=== PATIENT | male | born 1950 | race Caucasian/White ===

== ENCOUNTER 2018-05-20 13:01 | Emergency (ER) | payer MEDICARE, BC | END 2018-05-20 13:10 | disposition left against medical advice (07) | LOC: ERS 13:01 | DX: Z53.21 Procedure and treatment not carried out due to patient leaving prior to being seen by health care provider (principal) ==

== ENCOUNTER 2018-06-13 07:45 | Outpatient (CLI) | payer MEDICARE, BC ==
--- NOTE | 2018-06-13 09:55 | MRI ---
MR abdomen with and without IV contrast INDICATION: History of right lateral abdominal wall pain 2-3 months after lifting a heavy object TECHNIQUE: Multiplanar, multisequence MR images were obtained of the abdomen with and without IV cont rast. Contrast: 20 cc MultiHance. COMPARISON: CT of the abdomen and pelvis dated August 24, 2012. FINDINGS: Liver: Normal signal intensity without focal hepatic lesion. Gallbladder: Normal. Pancreas: Normal. Adrenal glands: Normal. Kidneys: There are bilateral renal cysts. The largest within the left kidney measures 4.1 cm involvin g the inferior pole left kidney. The largest within the right kidney is T1 hyperintense and without enhancement consistent with a proteinaceous cyst. This lesion measures 2 cm in size. No hydronephrosi s is demonstrated. Spleen: Normal. The spleen measures 10.7 cm. There is a small splenule seen along its posterior borde r. Lymphadenopathy or free fluid: None Vasculature: Appropriate flow voids are demonstrated. Bowel: Visualized bowel appears within normal limits. Osseous structures: No signal abnormality evident. IMPRESSION: 1. No MR explanation for the patient's abdominal pain. 2. Bilateral renal cysts.
[2018-06-13] MEDS ORDERED: Gadobenate Dimeglumine 529 MG/1 ML (20ML VIAL) ONE (11:07)
== END 2018-06-13 07:46 | disposition home or self-care (01) ==
LOC: MRI 07:45
PROVIDERS: ATTEND Family Medicine
DX: R10.9 Unspecified abdominal pain (principal); N28.1 Cyst of kidney, acquired
CPT/HCPCS: 74183; 82565

== ENCOUNTER 2019-06-29 13:02 | Observation (INO) | payer MEDICARE, BC ==
[2019-06-29] MEDS ORDERED: diphenhydrAMINE 25 MG CAP ONE (14:07)
[2019-06-29] MEDS ORDERED: methylPREDNISolone Sod Succ/PF 125 MG/2 ML VIAL ONE (14:07)
[2019-06-29] MEDS ORDERED: Lorazepam 1 MG TAB PO PRN (14:55)
[2019-06-29] MEDS ORDERED: hydrALAZINE 20 MG/ML VIAL SLOW IVP PRN (15:24)
[2019-06-29] MEDS ORDERED: Acetaminophen 325 MG TAB PO PRN (15:27)
[2019-06-29] MEDS ORDERED: Ondansetron PF 4 MG/2 ML Vial IVP PRN (15:27)
[2019-06-29] MEDS ORDERED: Calcium Carbonate 500 MG ChewTAB PO PRN (15:27)
[2019-06-29] MEDS ORDERED: Ondansetron ODT 4 MG TAB PO PRN (15:27)
[2019-06-29] MEDS ORDERED: Senokot S 8.6-50 MG TAB PO PRN (15:27)
--- NOTE | 2019-06-29 15:49 | HP ---
PRIMARY CARE PHYSICIAN: Tulio Burch MD CHIEF COMPLAINT: Stroke-like symptoms. HISTORY OF PRESENT ILLNESS: The patient is a 69-year-old male with hypertension and hyperlipidemia, presented to the emergency room at [facility] with above complaints. The patient's spouse is currently admitted at this facility. The patient was driving back home this morning when he had above symptoms. He had sudden onset of left-sided facial droop along with perioral numbness. When he reached home per his daughter's instruction, who is an RN, the patient called 911. The patient denied any double vision, blurring of vision, weakness, numbness of any of his extremities. No palpitations, chest pain, nausea, vomiting, syncope reported. He also noticed some swelling of left side of the lips without any tongue swelling. No wheezing or skin rash reported. In the emergency room, his initial vital signs showed temperature of 99.1 with respirations of 14, pulse rate of 69 with blood pressure of 158/75 with O2 saturation 100% on room air. He received aspirin along with IV fluids in the emergency room and was transferred to this facility. His CT scan of the brain was negative for acute CVA. His CT angiogram of the head and neck was negative for hemodynamically significant stenosis. PAST MEDICAL HISTORY: 1. Hypertension. 2. Hyperlipidemia. 3. Benign prostatic hypertrophy. 4. GERD. 5. CKD. PAST SURGICAL HISTORY: 1. Right leg surgery. 2. Surgery for diverticulitis, details unavailable. ALLERGIES: NO KNOWN DRUG ALLERGIES. CURRENT HOME MEDICATIONS: The patient is on lisinopril, Statins and Nexium per the patient's report. He is unable to recall the dosages. SOCIAL HISTORY: The patient smokes 4 to 5 cigars on a daily basis for last 30 years. He denies any alcohol or drug use. He makes his own decision with the help of his family. He is full code. FAMILY HISTORY: Negative for heart disease or CVA. REVIEW OF SYSTEMS: All other review of systems reviewed and were found negative. PHYSICAL EXAMINATION: VITAL SIGNS: As discussed above. GENERAL: This is a 69-year-old male, in no apparent distress. The patient's numbness is improving. HEENT: Head, atraumatic and normocephalic. Sclerae anicteric. Moist mucous membranes. No oral lesion. NECK: Supple. No JVD appreciated. No carotid bruit. LUNGS: Clear to auscultation bilaterally. No wheezing, rales or rhonchi. HEART: S1 and S2 present. Regular rate and rhythm. No rubs or gallops. ABDOMEN: Soft and nontender. Bowel sounds present. No rebound or guarding. EXTREMITIES: No edema or calf tenderness. NEUROLOGIC: Grossly nonfocal, moves all 4 extremities. Power was 5/5 in all extremities. Sensation to touch was normal bilaterally. There is minimal left-sided facial droop along with perioral numbness. No other focal neurologic finding. All other cranial nerves were in normal range. SKIN: Warm and dry. LYMPH NODES: No palpable lymph nodes in the neck. PSYCHIATRY: The patient is alert, awake, and oriented x3. LABORATORY FINDINGS: CBC showed WBC of 8.4 with hemoglobin of 13.5, hematocrit of 41.1, and platelet of 137. PT/INR in normal range. Chemistry showed sodium of 141, potassium of 4, chloride of 108, bicarb of 21, BUN of 26, creatinine of 1.69. Troponins were negative. LFTs in normal range. CT scan of the brain by my review as discussed above. CT angiogram of the head and neck as discussed above. IMPRESSION: 1. Suspected cerebrovascular accident. 2. Questionable angioedema due to STACY inhibitor. 3. Hypertension. 4. Dyslipidemia. 5. Benign prostatic hypertrophy. 6. Lumbar degenerative joint disease. 7. Chronic kidney disease, stage 3. 8. Chronic anemia, suspected due to nutritional deficiency. 9. Gastroesophageal reflux disease. PLAN: The patient will be monitored in the stroke unit. He is not on any antiplatelet agent. He will be started on aspirin. He received 324 mg aspirin in the emergency room. Fasting lipid profile will be obtained. He also received IV steroids and Benadryl in the emergency room for possible angioedema, which will be continued. IV steroids will be changed to prednisone. We will check echocardiogram. Neurology consultation. We will discontinue STACY inhibitor for now. The patient understands the above plan of care. Job ID: [id number] [facility]
[2019-06-29 16:58] VITALS: BMI 25.8
[2019-06-29] MEDS: Loratadine 10 MG TAB PO SCH (20:11)
[2019-06-29] MEDS ORDERED: Atorvastatin Calcium 40 MG TAB PO SCH (21:00)
[2019-06-30 05:13] LABS: Cardiac Risk 3.3 (Less than 4.5)
[2019-06-30] MEDS ORDERED: predniSONE 20 MG TAB PO SCH (08:00)
[2019-06-30] MEDS: Famotidine 20 MG TAB PO SCH (08:42)
--- NOTE | 2019-06-30 08:43 | PDOC.HOSPP ---
- Subjective Encounter Date: 06/30/19 Encounter Time: 07:30 Subjective: Patient seen and examined for TIA. Left facial swelling/numbness resolved. No new focal deficits. No new complaints. No overnight events - Objective Vital Signs & Weight: Vital Signs (12 hours) Temp Pulse Resp BP BP Pulse Ox 06/30/19 07:16 97.8 F 61 12 105/55 L 96 06/30/19 04:00 98.1 F 56 L 18 102/53 L 97 06/30/19 00:43 96 06/29/19 23:54 98.5 F 62 16 129/66 96 Weight Weight 180 lb I&O: 06/29/19 06/30/19 07/01/19 06:59 06:59 06:59 Intake Total 930 Balance 930 Additional Labs: Laboratory Tests 06/30/19 04:35 Triglycerides 43 Cholesterol 119 LDL Cholesterol, Calc 74 HDL Cholesterol 36 EKG Reviewed by me: Yes (Tele SB) Hospitalist ROS - Review of Systems Respiratory: denies: cough, dry, shortness of breath, hemoptysis, SOB with excertion, pleuritic pain, sputum, wheezing, other Cardiovascular: denies: chest pain, palpitations, orthopnea, paroxysmal noc. dyspnea, edema, light headedness, other Gastrointestinal: denies: nausea, vomiting, abdominal pain, diarrhea, constipation, melena, hematochezia, other - Medication Medications: Active Medications Generic Name Dose Route Start Last Admin Trade Name Freq PRN Reason Stop Dose Admin Loratadine 10 mg 06/29/19 21:00 06/29/19 20:11 Claritin PO 10 mg [facility] Administration - Exam General Appearance: NAD Neck: supple, no JVD Heart: RRR, no gallops, no rubs, normal peripheral pulses Respiratory: no wheezes, no rales, no ronchi, normal chest expansion Gastrointestinal: soft, non-tender, non-distended, normal bowel sounds Extremities: no cyanosis, no clubbing, no edema Neurological: cranial nerve grossly intact, normal sensation to touch, no weakness, no new deficit Psychiatric: normal affect, A&O x 3 Hosp A/P - Plan DVT proph w/SCDs 1. TIA r/o CVA 2. ?angioedema due to STACY inhibitor. 3. Hypertension. 4. Dyslipidemia. 5. Benign prostatic hypertrophy. 6. Lumbar degenerative joint disease. 7. Chronic kidney disease, stage 3. 8. Chronic anemia, suspected due to nutritional deficiency. 9. Gastroesophageal reflux disease. PLAN: Cont ASA Cont Statins Await MRI brain/Echo/Neuro input DC Lovenox - Pt ambulating Walking program Lisinopril dced due to ?Angioedema Cont other meds as above
[2019-06-30] MEDS ORDERED: Aspirin 325 mg Enteric Coated Tablet PO SCH (09:00)
[2019-06-30] MEDS ORDERED: Enoxaparin Sodium 40 MG/0.4 ML SYRINGE SC SCH (09:00)
--- NOTE | 2019-06-30 10:06 | MRI ---
Exam: Brain MRI without contrast HISTORY: Left facial numbness yesterday. Symptoms have subsequently subsided. Evaluate for CVA COMPARISON: None FINDINGS: Calvarial marrow signal intensity: Appropriate T1 signal Gradient echo sequence: No hemorrhage Brain parenchyma: No mass, mass effect or midline shift. Brain volume, age-appropriate. Cortical cobos-white matter differentiation: Preserved Restricted diffusion: Central arterial flow voids are maintained. Absent restricted diffusion White matter signal intensities:Minimal T2 and FLAIR white matter hyperintensities. Sinuses: Minimal opacification of the paranasal sinuses. Adequate mastoid air cell aeration IMPRESSION: 1. Absent restricted diffusion. No acute infarct. 2. Age-appropriate brain volume. Cortical cobos-white white matter differentiation is preserved.
--- NOTE | 2019-06-30 15:35 | CON ---
DATE OF CONSULTATION: 06/30/2019 NEUROLOGY CONSULTATION REASON FOR CONSULTATION: Stroke-like symptoms. HISTORY OF PRESENT ILLNESS: Mr. Dimas is a 69-year-old male with history significant for diabetes, hypertension, presented to the emergency room with stroke-like symptoms. Per the patient, he had sudden onset of left facial droop with perioral numbness as he was driving home. Per , his is admitted to this facility. He was extremely worried and admits that he did not sleep for 24 hours prior to this episode. He also felt weak on the left side with slurred speech. The patient called his daughter who is an RN, who asked him to call 911. In the emergency room, a head CT was done which was negative for acute intracranial pathology. Head CTA was also negative for hemodynamically significant stenosis. He denies any nausea, vomiting, headache, chest pain, loss of vision or loss of consciousness associated with this episode. PAST MEDICAL HISTORY: Hypertension, hyperlipidemia, benign prostatic hypertrophy, GERD, chronic renal disease. PAST SURGICAL HISTORY: Right leg surgery, status post diverticulitis surgery. ALLERGIES: NO KNOWN DRUG ALLERGIES. HOME MEDICATIONS: 1. Lisinopril. 2. Statin. 3. Nexium. SOCIAL HISTORY: The patient lives with his . Smokes 4 to 5 cigars for the last 30 years. Denies alcohol or illegal drug use. FAMILY HISTORY: Negative for heart disease or stroke. - Objective Vital Signs & Weight: Vital Signs (12 hours) Temp Pulse Resp BP BP Pulse Ox 06/30/19 07:16 97.8 F 61 12 105/55 L 96 06/30/19 04:00 98.1 F 56 L 18 102/53 L 97 06/30/19 00:43 96 06/29/19 23:54 98.5 F 62 16 129/66 96 Weight Weight 180 lb I&O: 06/29/19 06/30/19 07/01/19 06:59 06:59 06:59 Intake Total 930 Balance 930 Additional Labs: Laboratory Tests 06/30/19 04:35 Triglycerides 43 Cholesterol 119 LDL Cholesterol, Calc 74 HDL Cholesterol 36 EKG Reviewed by me: Yes (Tele SB) - Review of Systems Respiratory: denies: cough, dry, shortness of breath, hemoptysis, SOB with excertion, pleuritic pain, sputum, wheezing, other Cardiovascular: denies: chest pain, palpitations, orthopnea, paroxysmal noc. dyspnea, edema, light headedness, other Gastrointestinal: denies: nausea, vomiting, abdominal pain, diarrhea, constipation, melena, hematochezia, other - Medication Medications: Active Medications Generic Name Dose Route Start Last Admin Trade Name Malachi PRN Reason Stop Dose Admin Loratadine 10 mg 06/29/19 21:00 06/29/19 20:11 Claritin PO 10 mg HS THEO Administration - Exam General Appearance: NAD Neck: supple, no JVD Heart: RRR, no gallops, no rubs, normal peripheral pulses Respiratory: no wheezes, no rales, no ronchi, normal chest expansion Gastrointestinal: soft, non-tender, non-distended, normal bowel sounds Extremities: no cyanosis, no clubbing, no edema NEUROLOGICAL: Mental status: The patient is alert and oriented to person, place, and time. Cranial nerves 2 through 12 intact. Motor: Muscle tone and bulk are normal. Strength 5/5 bilaterally. Sensory: Intact reflexes 2+ bilaterally. Cerebellar : [id number] testing intact. Gait not tested due to patient's safety reason. IMAGING: I reviewed the MRI of the brain which was unremarkable. ASSESSMENT AND PLAN: Mr. Dimas is consulted for an episode of slurred speech and perioral numbness associated with some left-sided weakness which resolved on its own more. The patient does have risk factors for stroke, so most likely a TIA. MRI of the brain reviewed which was negative for acute intracranial pathology. Recommend an echocardiogram and carotid Dopplers. Startaspirin for secondary stroke prevention. Continue high dose statin for secondary stroke prevention. Permissive control of the blood pressure at this time. Neuro checks every 4 hours. Continue home medications. PT/OT/speech. Continue medical management per primary team. We will continue to follow. Thank you for the consult. Job ID: [id number] [facility]
[2019-06-30] MEDS ORDERED: Atorvastatin Calcium 10 MG TAB PO SCH (21:00)
[2019-06-30] MEDS: Loratadine 10 MG TAB PO SCH (21:11)
[2019-07-01 05:01] VITALS: BP 107/64; TEMP 98.5
[2019-07-01] MEDS ORDERED: Aspirin 81 mg Enteric Coated Tablet PO SCH (09:00)
[2019-07-01] MEDS: Famotidine 20 MG TAB PO SCH (09:06)
--- NOTE | 2019-07-01 11:39 | PDOC.HOSPP ---
- Subjective Encounter Date: 07/01/19 Subjective: NEUROLOGY PROGRESS NOTE No acute events overnight. Neurological symptoms completely resolved. - Objective Vital Signs & Weight: Vital Signs (12 hours) Temp Pulse Resp BP BP Pulse Ox 07/01/19 04:57 98.5 F 64 15 107/64 107/64 97 07/01/19 01:16 98.2 F 68 18 112/56 L 96 07/01/19 00:32 94 L Weight Weight 181 lb I&O: 06/30/19 07/01/19 07/02/19 06:59 06:59 06:59 Intake Total 930 1000 Balance 930 1000 Radiology Reviewed by me: Yes EKG Reviewed by me: Yes Hospitalist ROS - Review of Systems Constitutional: denies: fever, chills, sweats, weakness, malaise, other Eyes: denies: pain, vision change, conjunctivae inflammation, eyelid inflammation, redness, other ENT: denies: ear pain, ear discharge, nose pain, nose discharge, nose congestion , mouth pain, mouth swelling, throat pain, throat swelling, other Respiratory: denies: cough, dry, shortness of breath, hemoptysis, SOB with excertion, pleuritic pain, sputum, wheezing, other Cardiovascular: denies: chest pain, palpitations, orthopnea, paroxysmal noc. dyspnea, edema, light headedness, other Gastrointestinal: denies: nausea, vomiting, abdominal pain, diarrhea, constipation, melena, hematochezia, other Genitourinary: denies: dysuria, frequency, incontinence, hematuria, retention, other Musculoskeletal: denies: neck pain, shoulder pain, arm pain, back pain, hand pain, leg pain, foot pain, other Skin: denies: rash, lesions, zhou, bruising, other - Medication Medications: Active Medications Generic Name Dose Route Start Last Admin Trade Name Freq PRN Reason Stop Dose Admin Aspirin 81 mg 07/01/19 09:00 07/01/19 09:06 Ecotrin PO 81 mg DAILY THEO Administration Atorvastatin Calcium 10 mg 06/30/19 21:00 06/30/19 21:11 Lipitor PO 10 mg HS THEO Administration Calcium Carbonate 1,000 mg 06/29/19 15:27 07/01/19 00:26 Tums PO 1,000 mg Q4H PRN Administration Heartburn or Indigestion Famotidine 20 mg 06/30/19 09:00 07/01/19 09:06 Pepcid PO 20 mg DAILY THEO Administration Loratadine 10 mg 06/29/19 21:00 06/30/19 21:11 Claritin PO 10 mg HS THEO Administration Sodium Chloride 10 ml 06/29/19 15:24 06/30/19 21:17 Flush - Normal Saline IVF 10 ml PRN PRN Administration Saline Flush - Exam General Appearance: awake alert Eye: PERRL, anicteric sclera ENT: normocephalic atraumatic, no oropharyngeal lesions, moist mucosa Neck: supple, symmetric, no JVD Heart: RRR, no murmur, no gallops, no rubs, normal peripheral pulses Respiratory: CTAB, no wheezes, no rales Gastrointestinal: soft Extremities: no cyanosis, no clubbing, no edema Skin: normal turgor, no lesions, no rashes Neurological: cranial nerve grossly intact, normal sensation to touch, no weakness, no focal deficits, no new deficit Musculoskeletal: normal tone, normal strength, no muscle wasting Psychiatric: normal affect, normal behavior, A&O x 3, oriented to person, oriented to place, oriented to time Hosp A/P (1) TIA (transient ischemic attack) Code(s): G45.9 - TRANSIENT CEREBRAL ISCHEMIC ATTACK, UNSPECIFIED Status: Acute - Plan old records reviewed/req, PT/OT, speech therapy 69 year old with TIA.He is at his baseline. Continue ASA and stain for secondary stroke prevention. MRI brain reviewed which did not reveal acute intracranial pathology. Echocardiogram is unremarkable Strict control of BP and BG. Continue home medications., Continue medical management per primary team. No further recommendations from neurology perspective.
--- NOTE | 2019-07-01 16:18 | DIS ---
DATE OF ADMISSION: 06/29/2019 DATE OF DISCHARGE: 07/01/2019 DISCHARGE DISPOSITION: Home. PRIMARY DISCHARGE DIAGNOSES: Left Resendez's palsy, possible transient ischemic attack. SECONDARY DISCHARGE DIAGNOSES: Hypertension, dyslipidemia, benign prostatic hypertrophy, likely chronic kidney disease, stage 3. PROCEDURES DONE DURING HOSPITALIZATION: Echo with 2D Doppler done showed an ejection fraction of 55%. LDL 74. BUN 26, creatinine 1.6. MRI done showed no acute intracranial abnormality. DISCHARGE MEDICATIONS: 1. Aspirin 81 mg p.o. daily. 2. Lipitor 10 mg p.o. at bedtime. 3. Omeprazole 40 mg p.o. daily. ALLERGIES: NO KNOWN DRUG ALLERGIES. DISCHARGE PLAN: The patient to follow up with Dr. Burch, his primary care physician in 1 week. He has been advised to check blood pressure and pulse twice daily and record for a period of 10 days to follow up with his primary care physician. BRIEF COURSE DURING HOSPITALIZATION: The patient initially came in with complaints of left-sided facial numbness along with lip swelling on the left side. In view of this history the patient called 911. Mr. Dimas was brought here to rule out TIA. Initial CT brain was negative for any acute intracranial abnormality. Clinical exam was consistent with Resendez's palsy on the left side. He has had MRI of the brain without contrast done, which did not reveal any acute infarct or bleed. His left-sided Resendez's palsy is rapidly improving. He has no trouble swallowing, chewing. His sensation is back to normal. There is no swelling at present. He is hemodynamically and neurologically stable. I have given complete updates to his daughter, who is a nurse on the phone. He needs to follow up with his primary care physician in 1 week. Please note, the patient's systolic blood pressures have ranged from 106 to 112 and all his antihypertensive medications have been held. Please note I have seen and examined patient on the day of discharge. Job ID: [id number] MTDD
== END 2019-07-01 11:51 | disposition home or self-care (01) ==
LOC: ERS 13:02 → 2SE 14:26
PROVIDERS: ADMIT Internal Medicine; ATTEND Internal Medicine
DX: G51.0 Bell's palsy (principal); I12.9 Hypertensive chronic kidney disease with stage 1 through stage 4 chronic kidney disease, or unspecified chronic kidney disease; N18.3 Chronic kidney disease, stage 3 (moderate); E78.5 Hyperlipidemia, unspecified; F17.290 Nicotine dependence, other tobacco product, uncomplicated; N40.0 Benign prostatic hyperplasia without lower urinary tract symptoms; D64.9 Anemia, unspecified; K21.9 Gastro-esophageal reflux disease without esophagitis; M47.816 Spondylosis without myelopathy or radiculopathy, lumbar region; Z79.899 Other long term (current) drug therapy
CPT/HCPCS: 70551; 80061; 93306; 96372; 96374; 97139 ×3; 99285; G0378 ×4; 36415; J1650; J2930; J7512; Q0163

== ENCOUNTER 2022-02-22 08:48 | Outpatient (CLI) | payer MEDICARE, BC ==
[2022-02-22 10:13] LABS: Hemoglobin 14.2 g/dL (13.5-17.5); Mean Corpuscular HGB CONC 34.4 g/dL (32.0-36.0); Mean Corpuscular Hemoglobin 30.7 pg (27.0-33.0); Mean Corpuscular Volume 89.4 fl (81.2-95.1); Mean Platelet Volume 11.1 fl (7.4-10.4); Platelet Count 156 10x3/uL (150-450); Red Blood Cell (RBC) Count 4.62 10x6/uL (4.32-5.72)
[2022-02-22 10:18] LABS: Bilirubin Neg (Negative); Blood, Urine 10 (Negative); Clarity Clear (Clear); Glucose, Urine (Dipstick) Normal (Negative); Ketone, Urine Negative (Negative); Leukocyte 25 (Negative); Nitrite Negative (Negative); Protein, Urine (Dipstick) Negative (Neg-Trace); Specific Gravity, Urine 1.015 (1.005-1.030); pH, Urine 6.5 (5.0-9.0)
[2022-02-22 10:40] LABS: INR-International Normal Ratio 0.9; PTT 23.4 sec (22.0-33.0); Prothrombin Time 10.3 sec (9.5-12.1)
[2022-02-22 10:48] LABS: Bacteria/HPF Rare-Few HPF (None Seen); Squamous Epithelial Greater than 50 HPF (0-3)
[2022-02-22 10:50] LABS: Anion Gap 14 mmol/L (10-20); BUN (Urea Nitrogen) 20 mg/dL (8.4-25.7); Calc. Creatinine Clearance 0 mL/min (70-130); Calcium 9.6 mg/dL (7.8-10.44); Carbon Dioxide 25 mmol/L (23-31); Chloride 108 mmol/L (98-107); Estimated GFR 60; Glucose 87 mg/dL (83-110); Sodium 143 mmol/L (136-145)
== END 2022-02-22 08:49 | disposition home or self-care (01) ==
LOC: LABBT 08:48
PROVIDERS: ATTEND Urology
DX: Z01.812 Encounter for preprocedural laboratory examination (principal); N47.1 Phimosis; N47.7 Other inflammatory diseases of prepuce
CPT/HCPCS: 80048; 81001; 85027; 85610; 85730; 87086; 93005; 93010

== ENCOUNTER 2022-03-03 05:40 | Day surgery (SDC) | payer MEDICARE, BC ==
[2022-03-01 10:54] VITALS: BMI 29.0
[2022-03-03] MEDS ORDERED: Bupivacaine 0.25% HCL 30 ML VIAL ONE (06:35)
[2022-03-03] MEDS ORDERED: Bacitracin Zinc Ointment 30 gm TUBE ONE (06:35)
[2022-03-03] MEDS ORDERED: Fentanyl 100 MCG/2 ML VIAL ONE (07:13)
[2022-03-03] MEDS ORDERED: Midazolam HCl 2 mg/2 ml Vial ONE (07:13)
[2022-03-03] MEDS ORDERED: Sodium Chloride 0.9% 100 ML ONE (07:19)
[2022-03-03] MEDS ORDERED: CEFAZOLIN 2 GM VIAL ONE (07:19)
[2022-03-03] MEDS ORDERED: PROPOFOL 200 MG/20 ML VIAL ONE (07:30)
[2022-03-03] MEDS ORDERED: ePHEDrine 50 MG/ML VIAL ONE (07:30)
[2022-03-03] MEDS ORDERED: Dexamethasone 20 MG/5 ML VIAL ONE (07:30)
[2022-03-03] MEDS ORDERED: Lidocaine 1% PF 5 ML VIAL ONE (07:30)
[2022-03-03] MEDS ORDERED: Ondansetron PF 4 MG/2 ML Vial ONE (07:30)
== END 2022-03-03 10:53 | disposition home or self-care (01) ==
LOC: SDC 05:40
PROVIDERS: ATTEND Urology
PROC: 0VTTXZZ Resection of Prepuce, External Approach (ICD-10-PCS; principal; 2022-03-03)
PROC: 0TQD7ZZ Repair Urethra, Via Natural or Artificial Opening (ICD-10-PCS; 2022-03-03)
DX: N35.911 Unspecified urethral stricture, male, meatal (principal); N48.0 Leukoplakia of penis; N47.1 Phimosis; I10 Essential (primary) hypertension; E78.5 Hyperlipidemia, unspecified; Z79.82 Long term (current) use of aspirin; Z79.899 Other long term (current) drug therapy
CPT/HCPCS: 88304; J1100; J2250; J2405; J2704; J3010; J3490; S0020